=== PATIENT | male | born 2000 | race Caucasian/White ===

== ENCOUNTER 2025-01-23 00:23 | Emergency (ER) | payer BC, SELFPAY ==
[2025-01-23 00:29] VITALS: BP 127/69; PULSE 71; RESP 18; TEMP 36.5; O2SAT 100; BMI 23.0
--- NOTE | 2025-01-23 00:34 | ED_ITS ---
Discharge Plan Disposition Patient Disposition: Home, Self-Care Prescriptions Prescriptions: New hydroxyzine HCl 25 mg tablet 25 mg PO TID PRN (Reason: nausea and vomiting) Qty: 30 0RF No Action amoxicillin 500 mg capsule 500 mg PO BID Qty: 20 0RF Referrals Follow up/Referrals: Provider,Referral, [Primary Care Provider, Medical] - See instructions Activity Restrictions/Add. Instructions Additional Instructions/Restrictions: Please follow-up with your primary care provider. Please return to the emergency department if you develop any new or worsening symptoms or become concerned for your health. Please take the hydroxyzine and use the ointment as needed. Clinical Impressions Clinical Impression: Sunburn Instructions Patient Instructions: DI for Skin Abscess Print Language Print Language: Lithuanian Discharge ED Provider: Teo Cross Adult HPI General Chief complaint: Skin/Abscess/Foreign Body Stated complaint: sun burn, itching Time Seen by Provider: 01/23/25 00:32 Mode of Arrival: Ambulatory Source of Information: Patient Description of Symptoms (Recalled from ER Triage Doc. by RN): pt presents for evaluation of sunburn to upper body that has been in place x2 days with no relief from OTC treatments. Pt reports severe itching with no blisters. History of Present Illness HPI narrative: 24-year-old male without significant past medical history presents for itchy sunburn. He reports he got sunburned several days ago. It has been hurting since then, but it started itching today. He reports he has used numerous brbg-lve-oxxtagq treatments without improvement in pain or itching. Denies blisters. Denies any other symptoms. Related Data Previous Rx's ?Medication ?Instructions ?Recorded amoxicillin 500 mg capsule 500 mg PO BID #20 caps 0502/19 hydroxyzine HCl 25 mg tablet 25 mg PO TID PRN nausea a nd 01/23/25 vomiting #30 tabs Allergies Allergy/AdvReac Type Severity Reaction Status Date / Time No Known Allergies Allergy Verified 11/02/24 14:17 [facility] Disclaimer: The information contained in this section may have been updated after the patient was seen, as this information can be updated by other users. Medical History (Updated 01/23/25 @ 00:38 by Nora Bean RN) Strep throat Social History (Updated 11/02/24 @ 14:18 by EMERALD Hayward) Smoking Status: Current every day smoker tobacco type: e-cigarettes alcohol intake: never current occupational status: employed Travel in the last 8 weeks?: None Have you lived/traveled outside [place] in past 30 days?: No Contact w/someone who lives/traveled outside US past 30 days?: No Exposure to someone with infectious disease in past 14 days?: No Do you have a fever (greater than 100.4 F or 38 C)?: No Have you tested positive for COVID-19?: No Exposed to someone with COVID-19 in past 14 days?: No Do you have a sore throat?: No Do you have a cough?: No Do you have any weakness?: No Do you have any diarrhea?: No Are you experiencing any unusual bleeding?: No Do you have any muscle aches/pain?: No Do you have any abdominal pain?: No Are you experiencing loss of taste or smell?: No ROS Obtained: Yes All systems reviewed & no additional complaints except as documented Physical Exam General General appearance: alert and in no apparent distress Head Head exam: atraumatic and normocephalic Eye Eye exam: Present normal appearance, PERRL and EOMI ENT ENT exam: Present normal oropharynx and normal external ear exam Neck Neck exam: Present normal inspection and full ROM Chest Chest inspection: Present normal inspection and symmetric chest wall rise; Absent tenderness Respiratory Respiratory exam: Present normal lung sounds bilaterally; Absent respiratory distress Cardiovascular Cardiovascular exam: Present regular rate and normal rhythm Abdominal Exam Abdominal exam: Present soft; Absent distention, tenderness or guarding Extremities Exam Extremities exam: Present normal inspection; Absent edema or joint swelling Back Exam Back exam: Present normal inspection; Absent tenderness Neurological Exam Neurological exam: Present alert and oriented X3; Absent motor sensory deficit Psychiatric Psychiatric exam: Present normal affect and normal mood Skin Skin exam: Present warm, dry and erythema (Erythema over the chest shoulders and face and arms consistent with sunburn. No blisters, no rash) Lymphatic Lymphatic Findings: no adenopathy Medical Decision Making Medical Records Medical records reviewed: Yes I reviewed the patient's medical records. Screening: Per USPSTF and CDC recommendations, given the prevalence of disease in our region, it is our hospital?s policy to screen for HIV and viral Hepatitis for all patients aged 18 and over and those with ongoing risk factors. Imer Inquiry Pt receiving controlled substance: No Imer was queried for this patient: No Vital Signs: 01/23/25 00:29 01/23/25 00:37 Temperature 97.7 F 97.7 F Temperature Source Oral Oral Pulse Rate 71 Pulse Rate [Radial] 71 Respiratory Rate 18 16 Blood Pressure 127/69 Blood Pressure [Right Arm] 127/69 Blood Pressure Mean [Right Arm] 88 Blood Pressure Position Sitting Blood Pressure Position [Right Arm] Sitting 02 Sat by Pulse Oximetry 100 Oxygen Delivery Method Room Air Room Air Lab Data Lab results reviewed: Yes I reviewed the patient's lab results. Orders (Tests/Meds): ED MEDICATIONS Discontinued Medications Generic Name Dose Route Start Last Admin Trade Name Liza PRN Reason Stop Dose Admin Bacitracin 1 gm 01/23/25 00:33 01/23/25 00:36 Bacitracin Zinc Oint 30gm Tube TP 01/23/25 00:34 1 gm DAILY ONE Administration Hydroxyzine Pamoate 25 mg 01/23/25 00:33 01/23/25 00:36 Hydroxyzine Pamoate 25mg Capsule PO 01/23/25 00:34 25 mg ONCE ONE Administration Medical Decision Narrative: 24-year-old male presents with sunburn that is no itching. History was obtained via interactive discussion with patient. On arrival, patient is [afebrile, hemodynamically stable, satting appropriately, alert, oriented x4, GCS 15], moving all extremities spontaneously. Full physical exam performed and significant for generalized mild sunburn without rash Differential includes but is not limited to superficial burn, partial-thickness burn, full-thickness burn, allergic reaction,. Patient was given bacitracin ointment and hydroxyzine. The itching may be coming from the rash peeling/healing, or it could be from the fiwg-erg-dcruoov remedies he has tried. I recommended he cease the zxoc-bap-gqzsmuc medications and take hydroxyzine as needed for itching and apply the bacitracin ointment as well. Patient discharged in stable condition with return precautions. Procedures Risk/Benefits of Procedure(s) Were Explained: Yes Critical Care Critical Care Time Critical Care Time: No
--- NOTE | 2025-01-23 00:34 | PC.NURSE ---
slight redness noted to BUE, chest and back. No blisters noted, no peeling.
--- OUTSIDE RECORDS SUMMARY | 2025-01-23 00:34 | XMS_ITS | Data Portability ---
Author Organization SVITLANA [facility], [facility] Inpatient hospital - New Address [address] [place] [address] Care Team Providers Care Rn Homecare Name Role Phone MATHEW MONTE Primary Care Provider Assessment No assessment recorded. Plan of Treatment Reminders Order Date Submit Date Provider Last Modified By Organization Details Last Modified Time Details Appointments RECHECK 2024 08:00A Drew Monte, DO Not available Not available Not available Lab gliadin peptide + tissue transglut aminase Ab, IgA + IgG, QL, IA, serum 2024 025 [email or web address] [facility] (Express Lab - Patient Walk In), [address] [place], [address], 01/08/2025 08:09:07 CBC 2024 025 [facility] (Express Lab - Patient Walk In), [address] [place], [address], 01/05/2025 15:11:41 CMP, serum or plasma 2024 025 [facility] (Express Lab - Patient Walk In), [address] [place], [address], 01/05/2025 15:01:24 lipid panel, serum 2024 025 [email or web address] [facility] (Express Lab - Patient Walk In), [address] [place], [address], 01/01/2025 09:43:00 lipid panel, serum 2023 024 [email or web address] [facility] (Express Lab - Patient Walk In), [address] [place], [address], 12/04/2024 07:31:33 CBC w/ diff 2023 024 [facility] (Express Lab - Patient Walk In), [address] [place], [address], 11/12/2024 05:00:51 CMP, serum or plasma 2023 024 [facility] (Express Lab - Patient Walk In), [address] [place], [address], 11/12/2024 05:00:51 Referral hand surgeon referral 2024 025 [email or web address] Robin Spear, [address] [place], [address], 01/15/2025 08:30:24 Procedures None recorded. Surgeries None recorded. Imaging None recorded. Medication Orders Strattera 25 mg capsule 2023 024 [facility], [address] [place], [address], 05/08/2024 17:00:17 Patient TargetsNo targets recorded. Patient InstructionsNo instructions recorded. Reason for Referral Hand Surgeon Referral for Fi nger joint stiff Referring Physician: Mathew Monte, Family Medicine, Encounter Date: 01/01/2025 Results Created Date Observation Date Name Description Value Unit Range Abnormal Flag Note LastModifiedBy Organization Detail LastModifiedTime 01/06/20 25 01/05/2025 COMPL ETE METAB OLIC PANEL glucose (R or F) 90 mg/dL 70-110 normal Gluco se daniella l refer ence range is for fasti ng speci mens. Not Available [facility] (Lab) [address] [place] [address], [address], 01/05/2025 15:01:24 01/06/20 25 01/05/2025 COMPL ETE METAB OLIC PANEL sodium 140 mmol/ L 136-14 5 normal Not Available [facility] (Lab) [address] [place] [address], [address], 01/05/2025 15:01:24 01/06/20 25 01/05/2025 COMPL ETE METAB OLIC PANEL potassium 4.0 mmol/ L 3.5-5. 0 normal Not Available [facility] (Lab) [address] [place] [address], [address], 01/05/2025 15:01:24 01/06/20 25 01/05/2025 COMPL ETE METAB OLIC PANEL chloride 106 mmol/ L 98-108 normal Not Available [facility] (Lab) [address] [place] [address], [address], 01/05/2025 15:01:24 01/06/20 25 01/05/2025 COMPL ETE METAB OLIC PANEL carbon dioxide 29 mmol/ L 22-32 normal Not Available [facility] (Lab) [address] [place] [address], [address], 01/05/2025 15:01:24 01/06/20 25 01/05/2025 COMPL ETE METAB OLIC PANEL anion gap 9.0 mmol/ L 4.0-12 .0 normal Not Available [facility] (Lab) [address] [place] [address], [address], 01/05/2025 15:01:24 01/06/20 25 01/05/2025 COMPL ETE METAB OLIC PANEL calcium 10.0 mg/dL 8.4-10 .2 normal Not Available [facility] (Lab) [address], [address], 01/05/2025 15:01:24 01/06/20 25 01/05/2025 COMPL ETE METAB OLIC PANEL urea nitrogen 11 mg/dL 7-22 normal Not Available [facility] (Lab) [address] [place] [address], [address], 01/05/2025 15:01:24 01/06/20 25 01/05/2025 COMPL ETE METAB OLIC PANEL creatinine, blood 1.02 mg/dL 0.60-1 .20 normal Not Available [facility] (Lab) [address] [place] [address], [address], 01/05/2025 15:01:24 01/06/20 25 01/05/2025 COMPL ETE METAB OLIC PANEL eGFR 106 normal Not Available [facility] (Lab) [address] [place] [address], [address], 01/05/2025 15:01:24 01/06/20 25 01/05/2025 COMPL ETE METAB OLIC PANEL BUN/creatini ne ratio 11 mg/dL 12-20 low Not Available [facility] (Lab) [address] [place] [address], [address], 01/05/2025 15:01:24 01/06/20 25 01/05/2025 COMPL ETE METAB OLIC PANEL protein, total 7.4 g/dL 6.0-8. 0 normal Not Available [facility] (Lab) [address] [place] [address], [address], 01/05/2025 15:01:24 01/06/20 25 01/05/2025 COMPL ETE METAB OLIC PANEL albumin 4.9 g/dL 3.5-5. 0 normal Not Available [facility] (Lab) [address] [place] [address], [address], 01/05/2025 15:01:24 01/06/20 25 01/05/2025 COMPL ETE METAB OLIC PANEL globulin 2.5 g/dL Not Available [facility] (Lab) [address] [place] [address], [address], 01/05/2025 15:01:24 01/06/20 25 01/05/2025 COMPL ETE METAB OLIC PANEL A/G ratio 2.0 Not Available [facility] (Lab) [address], [address], 01/05/2025 15:01:24 01/06/20 25 01/05/2025 COMPL ETE METAB OLIC PANEL bilirubin, total 2.1 mg/dL 0.1-1. 2 high Not Available [facility] (Lab) [address] [place] [address], [address], 01/05/2025 15:01:24 01/06/20 25 01/05/2025 COMPL ETE METAB OLIC PANEL alk phos 84 U/L 21-130 normal Not Available [facility] (Lab) [address] [place] [address], [address], 01/05/2025 15:01:24 01/06/20 25 01/05/2025 COMPL ETE METAB OLIC PANEL AST 22 U/L 13-39 normal Not Available [facility] (Lab) [address] [place] [address], [address], 01/05/2025 15:01:24 01/06/20 25 01/05/2025 COMPL ETE METAB OLIC PANEL ALT 30 U/L 7-52 normal Not Available [facility] (Lab) [address] [place] [address], [address], 01/05/2025 15:01:24 01/06/20 25 01/05/2025 COMPL ETE METAB OLIC PANEL osmolality (calculated) 269 mOsm/ L 250-32 5 normal Not Available [facility] (Lab) [address] [place] [address], [address], 01/05/2025 15:01:24 01/06/20 25 01/05/2025 LIPID PROFI LE triglyceride s 86 mg/dL 0-200 normal Not Available [facility] (Lab) [address] [place] [address], [address], 01/05/2025 15:01:26 01/06/20 25 01/05/2025 LIPID PROFI LE cholesterol, total 186 mg/dL 82-200 normal Not Available [facility] (Lab) [address] [place] [address], [address], 01/05/2025 15:01:26 01/06/20 25 01/05/2025 LIPID PROFI LE HDL cholesterol 42 mg/dL 45-70 low Not Available [facility] (Lab) [address] [place] [address], [address], 01/05/2025 15:01:26 01/06/20 25 01/05/2025 LIPID PROFI LE LDL cholesterol, calculated 127 mg/dL 0-100 high Adult LDL Level s in terms of risk for Coron elvia Heart Disea se: Optim al 0 - 100 mg/dL Above optim al 100 - 129 mg/dL Borde rline 130 - 159 mg/dL High 160 - 190 mg/dL Very High >190 mg/dL Not Available [facility] (Lab) [address] [place] [address], [address], 01/05/2025 15:01:26 01/06/20 25 01/05/2025 LIPID PROFI LE coronary heart disease risk factor 4.4 normal NOTE: Elinor velasquez be fasti ng for a minim um of 12 hours for Lipid testi ng. CHD Risk Facto r (Chol rafy ol/HD L Ratio ) Refer ence: Male [place] ge Risk 5.0 2X [place] ge Risk 9.6 3X [place] ge Risk 23.4 Femal e [place] ge Risk 4.4 2X [place] ge Risk 7.1 3X [place] ge Risk 11.0 Not Available [facility] (Lab) [address] [place] [address], [address], 01/05/2025 15:01:26 01/06/20 25 01/05/2025 CBC WITH DIFFE RENTI AL white blood count 4.8 x10e3 /uL 4.5-11 .0 normal Not Available [facility] (Lab) [address] [place] [address], [address], 01/05/2025 15:11:40 01/06/20 25 01/05/2025 CBC WITH DIFFE RENTI AL red blood count 4.88 x10e6 /uL 4.50-5 .90 normal Not Available [facility] (Lab) [address] [place] [address], 6[address], 01/05/2025 15:11:40 01/06/20 25 01/05/2025 CBC WITH DIFFE RENTI AL hemoglobin 15.1 g/dL 13.5-1 7.5 normal Not Available [facility] (Lab) [address] [place] [address], 6[address], 01/05/2025 15:11:40 01/06/20 25 01/05/2025 CBC WITH DIFFE RENTI AL hematocrit 42.8 % 41.0-5 3.0 normal Not Available [facility] (Lab) [address] [place] [address], 86[address], 01/05/2025 15:11:40 01/06/20 25 01/05/2025 CBC WITH DIFFE RENTI AL MCV 87.6 fL 82.0-9 8.0 normal Not Available [facility] (Lab) [address] [place] [address], 25[address], 01/05/2025 15:11:40 01/06/20 25 01/05/2025 CBC WITH DIFFE RENTI AL MCH 30.9 pg 27.5-3 3.2 normal Not Available [facility] (Lab) [address] [place] [address], 320[address], 01/05/2025 15:11:40 01/06/20 25 01/05/2025 CBC WITH DIFFE RENTI AL MCHC 35.2 g/dL 33.4-3 5.5 normal Not Available [facility] (Lab) [address] [place] [address], 82210, 01/05/2025 15:11:40 01/06/20 25 01/05/2025 CBC WITH DIFFE RENTI AL RDW 13.5 % 11.6-1 4.6 normal Not Available [facility] (Lab) [address] [place] [address], 34[address], 01/05/2025 15:11:40 01/06/20 25 01/05/2025 CBC WITH DIFFE RENTI AL platelet count 236 x10e3 /uL 150-45 0 normal Not Available [facility] (Lab) [address] [place] [address], 17834, 01/05/2025 15:11:40 01/06/20 25 01/05/2025 CBC WITH DIFFE RENTI AL MPV 8.8 fL 6.5-12 .0 normal Not Available [facility] (Lab) [address] [place] [address], 060[address], 01/05/2025 15:11:40 01/06/20 25 01/05/2025 CBC WITH DIFFE RENTI AL neutrophils # 2.4 x10e3 /uL 1.8-7. 7 normal Not Available [facility] (Lab) [address] [place] [address], 04674, 01/05/2025 15:11:40 01/06/20 25 01/05/2025 CBC WITH DIFFE RENTI AL neutrophils % 50.3 % 49.0-7 9.0 normal Not Available [facility] (Lab) [address] [place] [address], 13227, 01/05/2025 15:11:40 01/06/20 25 01/05/2025 CBC WITH DIFFE RENTI AL lymphocytes # 1.9 x10e3 /uL 1.0-4. 8 normal Not Available [facility] (Lab) [address] [place] [address], 42420, 01/05/2025 15:11:40 01/06/20 25 01/05/2025 CBC WITH DIFFE RENTI AL lymphocytes % 39.3 % 12.0-4 0.0 normal Not Available [facility] (Lab) [address] [place] [address], 79489, 01/05/2025 15:11:40 01/06/20 25 01/05/2025 CBC WITH DIFFE RENTI AL monocytes # 0.4 x10e3 /uL 0.0-0. 8 normal Not Available [facility] (Lab) [address] [place] [address], 13090, 01/05/2025 15:11:40 01/06/20 25 01/05/2025 CBC WITH DIFFE RENTI AL monocyte % 9.2 % 2.0-11 .0 normal Not Available [facility] (Lab) [address] [place] [address], 69597, 01/05/2025 15:11:40 01/06/20 25 01/05/2025 CBC WITH DIFFE RENTI AL eosinophils # 0.0 x10e3 /uL 0.0-0. 5 normal Not Available [facility] (Lab) [address] [place] [address], 94855, 01/05/2025 15:11:40 01/06/20 25 01/05/2025 CBC WITH DIFFE RENTI AL eosinophils % 0.9 % 0.0-7. 0 normal Not Available [facility] (Lab) [address] [place] [address], 18329, 01/05/2025 15:11:40 01/06/20 25 01/05/2025 CBC WITH DIFFJosé MUSA AL basophils # 0.0 x10e3 /uL 0.0-0. 2 normal Not Available [facility] (Lab) [address] [place] [address], 50952, 01/05/2025 15:11:40 01/06/20 25 01/05/2025 CBC WITH DIFFE DIMPLE AL basophils % 0.3 % 0.0-2. 0 normal Not Available [facility] (Lab) [address] [place] [address], 36284, 01/05/2025 15:11:40 01/06/20 25 01/06/2025 GLIAD IN ANTIB JEZ, IGG deamidated gliadin abs, IgA 2 units 0-19 normal Negat fransico 0 - 19 Weak Posit fransico 20 - 30 Moder ate to Stron g Posit fransico >30 Perfo rmed at: [facility] - [facility] n [address] [place] [address] 1269 Lab Direc tor: Nuno davalos PhD, Phone : [phone] Not Available [facility] (Lab) [address] [place] [address], [address], 01/06/2025 17:10:06 01/06/2001/06/2025 YUKITHA DOMINGUEZA SE PANEL (4 YRS+) immunoglobul in A, qn 150 mg/dL 90-386 normal Perfo rmed at: [facility] n [address] [place] [address] 1262 Lab Direc tor: Nuno davalos PhD, Phone : [phone] Not Available [facility] (Lab) [address] [place] [address], 979[address], 01/08/2025 11:11:22 01/06/2001/06/2025 YUKI C DISEA SE PANEL (4 YRS+) T-transgluta minase (ttg) IgA <2 U/mL 0-3 normal Negat fransico 0 - 3 Weak Posit fransico 4 - 10 Posit fransico >10 Tissu e Trans gluta rachel e (tTG) has been ident ified as the endom ysial antig en. Studi es have demon str- ated that endom ysial IgA antib odies have over 99% speci ficit y for glute n sensi tive enter opath y. Not Available [facility] (Lab) [address] [place] [address], 39375, 01/08/2025 11:11:22 01/06/2001/06/2025 YUKI C DISEA SE PANEL (4 YRS+) T-transgluta minase (ttg) IgG 3 U/mL 0-5 normal Negat fransico 0 - 5 Weak Posit fransico 6 - 9 Posit fransico >9 Not Available [facility] (Lab) [address] [place] [address], 53870, 01/08/2025 11:11:22 01/06/20 25 01/06/2025 YUKI C DISEA SE PANEL (4 YRS+) deamidated gliadin abs, IgA 2 units 0-19 normal Negat fransico 0 - 19 Weak Posit fransico 20 - 30 Moder ate to Stron g Posit fransico >30 Not Available [facility] (Lab) [address] [place] [address], 99065, 01/08/2025 11:11:22 01/06/20 25 01/06/2025 YUKI C DISEA SE PANEL (4 YRS+) deamidated gliadin abs, IgG 1 units 0-19 normal Negat fransico 0 - 19 Weak Posit fransico 20 - 30 Moder ate to Stron g Posit fransico >30 Not Available [facility] (Lab) [address] [place] [address], 85560, 01/08/2025 11:11:22 01/06/20 25 01/08/2025 YUKI C DISEA SE PANEL (4 YRS+) endomysial antibody IgA Negati ve negati ve normal Not Available [facility] (Lab) [address] [place] [address], 66985, 01/08/2025 11:11:22 01/20/2001/19/2025 HEPAT IC (LIVE R) PROFI LE protein, total 7.2 g/dL 6.0-8. 0 normal Not Available [facility] (Lab) [address] [place] [address], 62170, 01/22/2025 10:51:37 01/20/2001/19/2025 HEPAT IC (LIVE R) PROFI LE albumin 4.7 g/dL 3.5-5. 0 normal Not Available [facility] (Lab) [address] [place] [address], 76767, 01/22/2025 10:51:37 01/20/2001/19/2025 HEPAT IC (LIVE R) PROFI LE globulin 2.5 g/dL Not Available [facility] (Lab) [address] [place] [address], 82921, 01/22/2025 10:51:37 01/20/2001/19/2025 HEPAT IC (LIVE R) PROFI LE A/G ratio 1.9 Not Available [facility] (Lab) [address] [place] [address], [address], 01/22/2025 10:51:37 01/20/2001/19/2025 HEPAT IC (LIVE R) PROFI LE bilirubin, total 2.0 mg/dL 0.1-1. 2 high Not Available [facility] (Lab) [address] [place] [address], 81739, 01/22/2025 10:51:37 01/20/20 25 01/19/2025 HEPAT IC (LIVE R) PROFI LE alk phos 72 U/L 21-130 normal Not Available [facility] (Lab) [address] [place] [address], 34963, 01/22/2025 10:51:37 01/20/20 25 01/19/2025 HEPAT IC (LIVE R) PROFI LE AST 21 U/L 13-39 normal Not Available [facility] (Lab) [address] [place] [address], 94057, 01/22/2025 10:51:37 01/20/20 25 01/19/2025 HEPAT IC (LIVE R) PROFI LE ALT 28 U/L 7-52 normal Not Available [facility] (Lab) [address] [place] [address], 05638, 01/22/2025 10:51:37 01/20/20 25 01/19/2025 HEPAT IC (LIVE R) PROFI LE bilirubin, conjugated 0.3 mg/dL 0.0-0. 5 normal Not Available [facility] (Lab) [address] [place] [address], 79694, 01/22/2025 10:51:37 01/20/20 25 01/19/2025 LIPID PROFI LE triglyceride s 88 mg/dL 0-200 normal Not Available [facility] (Lab) [address] [place] [address], 74077, 01/22/2025 10:51:39 01/20/20 25 01/19/2025 LIPID PROFI LE cholesterol, total 179 mg/dL 82-200 normal Not Available [facility] (Lab) [address] [place] [address], 65832, 01/22/2025 10:51:39 01/20/20 25 01/19/2025 LIPID PROFI LE HDL cholesterol 40 mg/dL 45-70 low Not Available [facility] (Lab) [address] [place] [address], 00531, 01/22/2025 10:51:39 01/20/2001/19/2025 LIPID PROFI LE LDL cholesterol, calculated 121 mg/dL 0-100 high Adult LDL Level s in terms of risk for Coron elvia Heart Disea se: Optim al 0 - 100 mg/dL Above optim al 100 - 129 mg/dL Borde rline 130 - 159 mg/dL High 160 - 190 mg/dL Very High >190 mg/dL Not Available [facility] (Lab) [address] [place] [address], 23413, 01/22/2025 10:51:39 01/20/2001/19/2025 LIPID PROFI LE coronary heart disease risk factor 4.5 normal NOTE: Patie nt shoul d be fasti ng for a minim um of 12 hours for Lipid testi ng. CHD Risk Facto r (Chol rafy ol/HD L Ratio ) Refer ence: Male [place] ge Risk 5.0 2X [place] ge Risk 9.6 3X [place] ge Risk 23.4 Femal e [place] ge Risk 4.4 2X [place] ge Risk 7.1 3X [place] ge Risk 11.0 Not Available [facility] (Lab) [address] [place] [address], 93160, 01/22/2025 10:51:39 Result Notes None recorded. Problems Name Problem SNOMED Code Status Onset Date Resolution Date Notes Provider Name and Address Organization Details Recorded Time Attention deficit hyperactivity disorder 660806510 Active 2023 Mathew Monte DO [address] [place] [address], [id number] [place] [address] 16:59:00 Problem Notes None recorded. Medical Equipment None Reported. Allergies No known drug allergies Medications Name Sig Start Date Stop Date Status Note LastModified by Organization Details LastModified Time amoxicillin 500 mg capsule TAKE 1 CAPSULE BY MOUTH TWICE DAILY 01/01 completed Not Available Not Available Not Available atomoxetine 25 mg capsule TAKE 1 CAPSULE BY MOUTH ONCE DAILY active Not Available Not Available No t Available Vitals Date Recorded Body height Body mass index (BMI) Body weight Oxygen saturation Oxygen saturation in Arterial blood by Pulse oximetry Heart rate Body temperature Pain severity - 0-10 verbal numeric rating [Score] - Reported Systolic And Diastolic Provider Name and Address Organization Details Last Updated DateTime 5 180.34 cm 23.8 kg/m2 76742.5 g 98 % 98 % 85 /min 98.1 [degF] 1 116/80 mm[Hg] Mabelmo Batres [facility] 5 09:27:02 Date Recorded Body weight Heart rate Oxygen saturation Oxygen saturation in Arterial blood by Pulse oximetry Body temperature Pain severity - 0-10 verbal numeric rating [Score] - Reported Systolic And Diastolic Provider Name and Address Organization Details Last Updated DateTime 4 31492.7 g 71 /min 99 % 99 % 97 [degF] 1 116/78 mm[Hg] Marva [place] [facility] 4 16:44:06 Social History Question Answer Notes LastModified by FriendCode Details LastModified Time Tobacco Smoking Status Never Smoker Mabel Batres [facility] 11/22/2024 11:33:10 Do You Have An Advance Directive? No [email or web address] Information not available 11/22/2024 How Many Years Have You Consumed Alcohol? 4 [email or web address] Information not available 11/22/2024 What Is Your Level Of Caffeine Consumption? Heavy [email or web address] Information not available 05/08/2024 Are You Deaf Or Do You Have Serious Difficulty Hearing? No [email or web address] Information not available 11/22/2024 What Was The Date Of Your Most Recent Tobacco Screening? 01/01/2025 [email or web address] Information not available 12/28/2024 What Is Your Relationship Status? Other [email or web address] Information not available 11/22/2024 Sex: Unknown Functional Status Question Answer Note LastModified by FriendCode Details LastModified Time Do you use any illicit or recreational drugs? No Information not available 05/08/2024 Do you or have you ever used any other forms of tobacco or nicotine? Yes [email or web address] Information not available 05/08/2024 What is your level of alcohol consumption? Moderate [email or web address] Information not available 11/22/2024 Do you or have you ever used e-cigarettes or vape? Current user of electronic cigarettes [email or web address] Information not available 05/08/2024 Mental Status None recorded. Family History Relationship Description Onset Age of this Age Resolved Age Notes LastModified by Organization Details LastModified Time Father Hypertensive disorder [email or web address] Not available 2023 16:57:42 Maternal Grandmother Dementia [email or web address] Not available 01/01 09:18:08 Paternal Grandmother Dementia [email or web address] Not available 01/01 09:18:08 Paternal Grandmother Cerebrovascu lar accident [email or web address] Not available 11:33:09 Mother Celiac disease [email or web address] Not available 2024 09:18:08 Medical History Condition Response ADD or ADHD Y Immunizations Vaccine Type Date Status Note Provider Nam e and Address Organization Details Recorded Time SARS-COV-2 (COVID-19) vaccine, UNSPECIFIED 06/28/2020 completed Mathew Monte DO [address] [place] [address], [phone] 05/08/2024 16:54:46 Influenza, split virus, trivalent, PF 05/08/2024 completed Mathew Monte DO [address] [place] [address], [phone] 05/08/2024 18:15:04 Past Encounters Encounter ID Performer Location Encounter Start Date Encounter Closed Date Diagnosis/Indication Diagnosis SNOMED-CT Code Diagnosis ICD10 Code Diagnosis Note [id number] Mathew Monte DO [facility] [address] [place] [address] 05/08/2024 16:40:00 05/08/2024 17:07:22 Administration of influenza vaccine [id number] Z23 Patient presents to clinic with need for influenza vaccinatio n. Influenza vaccinatio n was given in clinic. Patient was advised that they will need a repeat influenza vaccinatio n in 1 year. Patient is in agreement with assessment and plan. Follow up: 1 year for repeat vaccinatio n. Attention deficit hyperactivity disorder 674791778 F90.9 Condition status: New diagnosis Patient presents to clinic with symptoms consistent with ADD. We did discuss options with patient he will be started on medication . We will try nonstimula nt based medication first. Patient will be started on Strattera 25 mg daily. We will check labs. Further recommenda tions to follow based on patient's response to Strattera. Patient is in agreement with assessment and plan.Follo w-up: 1 month or sooner if needed Adult heal th examination [id number] Z00.01 Wellness plan PLAN ADVICE/REC VIVIENNE NS: I discussed the following with my patient: Smoking cessation and education and counseling given. Fall Risk Prevention not indicated by age Regular exercise yes Pain scale that was presented in exam 07/07 Urinary incontinen ce: Patient answered no when asked if they experience d any kind of urinary incontinen ce in the past 3 months. A review of the [facility] Health Maintenanc e record was performed and all age appropriat e screens have been ordered and we discussed with the patient the importance of their age related preventati ve testing and exams. These will be addressed at the appropriat e intervals. Please see chart health summary for details. The patients medication list was reviewed by the provider during the patient visit today. The patients chart was reviewed and the patient was not on greater than 15 days of opioid therapy in the past 12 months. Patient is currently followed by the following specialist s: None Ischemic h eart disease screening [id number] Z13.6 Patient presents to clinic with need for cardio vascular screening. Labs will be ordered as per below. Further recommenda tions followed based on levels. Patient is in agreement with assessment and plan. Follow-up: As needed based on labs Depression screening [id number] Z13.31 Depression screening PHQ-2 score - - 0 Screening for alcohol abuse [id number] Z13.39 CAGE-0 [id number] [facility] [place] [address] [facility] [place] [address] 01/01/2025 09:18:07 01/01/2025 09:55:39 Finger joint stiff [id number] M25.642 Condition status: New diagnosis Patient presents to clinic with stiffness and intermitte nt pain in the left fifth finger. As noted in HPI he has previous injury to this fifth finger. He has tried conservati ve therapy including steroid injections , PT and OT. Because of this we will place a referral to hand surgery. Recommenda tions to follow based on hand surgery's recommenda tions.Muna ent is in agreement with assessment and plan.Follo w up: 3 months Diarrhea [id number] R19.7 Condition status: New diagnosis Patient presents to clinic with intermitte nt diarrhea and abdominal pain. He does note mom being diagnosed with celiac disease. We will check for celiac disease. We will also check CBC and CMP. I did advise patient to eliminate gluten from his diet. We did also recommend trying to eliminate fatty foods, spicy foods, and milk products. We did discuss possible medication s but we will wait to see results of testing and response to dietary changes.Davion barry is in agreement with assessment and plan.Follo w-up: 3 months or sooner if needed Screening for cardiovascular system disease [id number] Z13.6 Patient presents to clinic with need for cardio vascular screening. Labs will be ordered as per below. Further recommenda tions followed based on levels. Patient is in agreement with assessment and plan. Follow-up: As needed based on labs [facility] examination [id number] Z00.01 Wellness planPLAN ADVICE/REC VIVIENNE NS:I discussed the following with my patient:Sm oking cessation and education and counseling given.Fall Risk Prevention not indicated by ageRegular exercise yesPain scale that was presented in exam 07/07Urinar y incontinen ce: Patient answered no when asked if they experience d any kind of urinary incontinen ce in the past 3 months.A review of the patients Health Maintenanc e record was performed and all age appropriat e screens have been ordered and we discussed with the patient the importance of their age related preventati ve testing and exams. These will be addressed at the appropriat e intervals. Please see chart health summary for details. The patients medication list was reviewed by the provider during the patient visit today. The patients chart was reviewed and the patient was not on greater than 15 days of opioid therapy in the past 12 months.Naty nikki is currently followed by the following specialist s: None Depression screening 171 [id number] Z13.31 Depression screening PHQ-2 score - - 0 Screening for alcohol abuse 057617857 Z13.39 CAGE-0 Generalize d abdominal pain [id number] R10.84 See above Health Concerns Section Related Observation LastModified by Organization Detai ls LastModified Time None Recorded Concern Status LastModified by Organization Details LastModified Time None Recorded Advance Directives Directive N: Payers Insurance Date Sequence Insurance Name Policy Number Policy Zuniga Covered Member ID Zuniga Member ID Guarantor Name 11/23/2024 1 [place] [id number] Antony Liao [id number] Antony Liao 01/15/2025 1 [place] [id number] Antony Liao [id number] Antony Liao 05/08/2024 1 *SELF PAY* Cassandra Liao
--- OUTSIDE RECORDS SUMMARY | 2025-01-23 00:34 | XMS_ITS | Continuity of Care Document ---
Author Organization SVITLANA Russell [facility], [facility] Address [address] [place] [address] Care Team Providers Care Breakfast Server Name Role Phone MATHEW MONTE Primary Care Provider Assessment No assessment recorded. Plan of Treatment Reminders Order Date Submit Date Provider Last Modified By Organization Details Last Modified Time Details Appointments RECHECK 2024 08:00A Drew Monte, DO Not available Not available Not available Lab gliadin peptide + tissue transglut aminase Ab, IgA + IgG, QL, IA, serum 2024 025 [email or web address] [facility] ([facility] - Patient Walk In), [address] [place], [address], 01/08/2025 08:09:07 CBC 2024 025 [facility] ([facility] Lab - Patient Walk In), [address] [place], [address], 01/05/2025 15:11:41 CMP, serum or plasma 2024 025 [facility] ([facility] Lab - Patient Walk In), [address] [place], [address], 01/05/2025 15:01:24 lipid panel, serum 2024 025 [email or web address] [facility] ([facility] - Patient Walk In), [address] [place], [address], 01/01/2025 09:43:00 Referral hand surgeon referral 2024 025 [email or web address] Robin Spear, [address] [place], [address], 01/15/2025 08:30:24 Procedures None recorded. Surgeries None recorded. Imaging None recorded. Medication Orders None recorded. Patient TargetsNo targets recorded. Patient InstructionsNo instructions recorded. Reason for Referral Hand Surgeon Referral for Fi nger joint stiff Referring Physician: Mathew Monte, Family Medicine, Encounter Date: 01/01/2025 Problems Name Problem SNOMED Code Status Onset Date Resolution Date Notes Provider Name and Address Organization Details Recorded Time Attention deficit hyperactivity disorder [id number] Active 2023 Mathew Monte DO [address], [address], [place] [facility] 16:59:00 Problem Notes None recorded. Medical Equipment [...] Updated DateTime 5 180.34 cm 23.8 kg/m2 84462.5 g 98 % 98 % 85 /min 98.1 [degF] 1 116/80 mm[Hg] Mabel SHANE [facility] 09:27:02 Social History Question Answer Notes LastModified by Organizat ion Details LastModified Time Tobacco Smoking Status Never Smoker SVITLANA Molina [facility] 11/22/2024 11:33:10 Do You Have An Advance Directive? No [email or web address] Information not available 11/22/2024 How Many Years Have You Consumed Alcohol? 4 Information not available 11/22/2024 What Is Your Level Of Caffeine Consumption? Heavy [email or web address] Information not available 05/08/2024 Are You Deaf Or Do You Have Serious Difficulty Hearing? No [email or web address] Information not available 11/22/2024 What Was The Date Of Your Most Recent Tobacco Screening? 01/01/2025 [email or web address] Information not available 12/28/2024 What Is Your Relationship Status? Other [email or web address] Information not available 11/22/2024 Sex: Unknown Functional Status Question Answer Note LastModified by Organizat ion Details LastModified Time Do you use any illicit or recreational drugs? No Information not available 05/08/2024 Do you or have you ever used any other forms of tobacco or nicotine? Yes [email or web address] Information not available 05/08/2024 What is your level of alcohol consumption? Moderate Information not available 11/22/2024 Do you or have you ever used e-cigarettes or vape? Current user of electronic cigarettes [email or web address] Information not available 05/08/2024 Mental Status None recorded. Family History Relationship Description Onset Age of this Age Resolved Age Notes LastModified by Organization Details LastModified Time Father Hypertensive disorder adam Not available 2023 16:57:42 Maternal Grandmother Dementia [email or web address] Not available 01/01 09:18:08 Paternal Grandmother Dementia [email or web address] Not available 01/01 09:18:08 Paternal Grandmother Cerebrovascu lar accident [email or web address] Not available 11:33:09 Mother Celiac disease [email or web address] Not available 2024 09:18:08 Medical History Condition Response ADD or ADHD Y Immunizations Vaccine Type Date Status Note Provider Nam e and Address Organization Details Recorded Time SARS-COV-2 (COVID-19) vaccine, UNSPECIFIED 06/28/2020 completed Mathew Monte DO [address] [place] [address], [address], [facility] 05/08/2024 16:54:46 Influenza, split virus, trivalent, PF 05/08/2024 completed Mathew Monte DO [address], [place], [address], [facility] 05/08/2024 18:15:04 Past Encounters Encounter ID Performer Location Encounter Start Date Encounter Closed Date Diagnosis/Indication Diagnosis SNOMED-CT Code Diagnosis ICD10 Code Diagnosis Note [id number] Mathew Monte [facility] [place] [address] [facility] SVITLANA SANTIZO [id number] 01/01/2025 09:18:07 01/01/2025 09:55:39 Finger joint stiff [id number] M25.642 Condition status: New diagnosis Patient presents [...] and plan.Follo w up: 3 months Diarrhea 17672294 R19.7 Condition status: New diagnosis Patient presents [...] if needed Screening for cardiovascular system disease [id number] Z13.6 Patient presents to clinic with need for cardio vascular screening. Labs will be ordered as per below. Further recommenda tions followed based on levels. Patient is in agreement with assessment and plan. Follow-up: As needed based on labs Adult th examination 113572759 Z00.01 Wellness planPLAN ADVICE/REC CLAUDIADAANIYA NS:I discussed the following with my patient:Sm [...] opioid therapy in the past 12 months.Naty jordan is currently followed by the following specialist s: None Depression screening 171 244128 Z13.31 Depression screening PHQ-2 score - - 0 Screening for alcohol abuse 421101449 Z13.39 CAGE-0 Generalize d abdominal pain 575546261 R10.84 See above Health Concerns Section Related Observation LastModified by Organization Detai ls LastModified Time None Recorded Concern Status LastModified by Organization Details LastModified Time None Recorded Payers Encounter Date Sequence Insurance Name Policy Number Policy Zuniga Covered Member ID Zuniga Member ID Guarantor Name 01/01/2025 1 [place] [id number] Antony Liao [id number] Antony Liao
[2025-01-23] MEDS: BACITRACIN ZINC OINT 30GM TUBE TP (00:36)
[2025-01-23 00:37] VITALS: BP 127/69; PULSE 71; RESP 16; TEMP 36.5; O2SAT 100
== END 2025-01-23 00:38 | disposition home or self-care (01) ==
PROVIDERS: Emergency Provider Emergency Medicine
DX: L55.9 Sunburn, unspecified (principal)
CPT/HCPCS: 99283